=== PATIENT | female | born 1945 | race Caucasian/White ===

== ENCOUNTER 2022-04-02 11:04 | Inpatient (IN) | payer MEDICARE, MEDICAID, SELFPAY ==
[2022-04-02] VITALS (13 sets, daily range): BP systolic 110–132; BP diastolic 43–74; PULSE 69–84; RESP 12–24; TEMP 36.4–36.8; O2SAT 85–99; BMI 53.8
--- NOTE | ~2022-04-02 | XR_ITS ---
Portable chest x-ray Comparison: 04/02/2022 Clinical History: Dyspnea Findings: Moderate pulmonary edema pattern is present. No pleural effusions. Cardiomediastinal silh ouette is stable. Bones and soft tissues are unremarkable. Impression: Stable moderate pulmonary edema pattern. Correlate clinically for pneumonia. Reviewed, dictated and finalized at [facility]. UER MIXER Impression: Stable moderate pulmonary edema pattern. Correlate clinically for pneumonia.
--- NOTE | ~2022-04-02 | CT_ITS ---
CT scan of the Neck Technique: 2.5 mm axial scans were obtained through the neck without IV contrast demonstration. Coron al and sagittal reconstructions of the neck were obtained. Dose reduction technique was used on this scan by utilizing automated exposure control and iterative reconstruction technique. The dose-length product (DLP) was 1208.80 mGy-cm. Clinical History: Right neck pain, history of lymphoma Findings: There is no evidence of any significant cervical lymphadenopathy. Several small, nonenlarged jugulo- digastric and posterior cervical lymph nodes are noted bilaterally. Parapharyngeal spaces appear norm al bilaterally. The parotid and submandibular glands appear normal. The pharyngeal mucosal spaces appear normal. No soft tissue masses are seen in the neck. The thyroid gland appears normal. Images of the lung apices reveal patchy ground glass opacity and in terstitial thickening. Impression: No significant abnormality seen in the neck itself. Groundglass opacity and interstitial thickening in the visualized lungs suggest pulmonary edema. Reviewed, dictated and finalized at [facility]. AL ASSISTED THERAPIST Impression: No significant abnormality seen in the neck itself. Groundglass opacity and interstitial thickening in the visualized lungs suggest pulmonary edema.
--- NOTE | ~2022-04-02 | XR_ITS ---
Clinical Indication: Neck pain AP and lateral views of the chest: Comparison: 03/28/2016 Findings: Extensive bilateral pulmonary airspace disease and interstitial tearing present. No pleural effusion.. Cardiomediastinal silhouette is within normal limits. Bones and soft tissues are unremar kable. Impression: Extensive alveolar and interstitial pulmonary disease. Correlate for moderate pulmonary edema, infect ion, and possible underlying chronic interstitial disease. Reviewed, dictated and finalized at location . MACHINE OPERATOR Impression: Extensive alveolar and interstitial pulmonary disease. Correlate for moderate p ulmonary edema, infection, and possible underlying chronic interstitial disease .
--- NOTE | 2022-04-02 12:42 | ED.GENADULT ---
HPI - General Adult General Chief complaint: Unspecified Stated complaint: neck pain x 3 days, sore throat Time Seen by Provider: 04/02/22 12:02 History of Present Illness HPI narrative: 76-year-old female history of ESRD Friday, history of lymphoma status postresection, diabetes, presented with right neck pain. Per patient, for the last 4 days she has been having intermittent right neck pain, nonradiating, which has caused her significant pain. She was in dialysis today was only able to complete 3 hours when she was unable to continue because of the right neck pain. She denied fevers, chills, trauma to the area, chest pain, shortness of breath, abdominal pain, diarrhea. Past medical history: ESRD TTS, remote lymphoma status postresection and chemo Past surgical history: Left AV fistula Medications: Aspirin Allergies: No known drug allergies Related Data Home Medications Medication Instructions Recorded Confirmed allopurinol 100 mg tablet 100 mg PO DAILY 10/10/21 10/10/21 aspirin 81 mg tablet,delayed 81 mg PO DAILY 10/10/21 10/10/21 release (Adult Aspirin Regimen) atorvastatin 40 mg tablet 40 mg PO DAILY 10/10/21 10/10/21 gabapentin 100 mg capsule 100 mg PO BID 10/10/21 10/10/21 midodrine 10 mg tablet 10 mg PO TID 10/10/21 10/10/21 ropinirole 3 mg tablet 3 mg PO TID 10/10/21 10/10/21 vitamin B comp no.3-folic acid 1 1 tablet PO DAILY 10/10/21 10/10/21 mg-vit C 60 mg-biotin 300 mcg tablet ([facility]) Allergies Allergy/AdvReac Type Severity Reaction Status Date / Time No Known Allergies Allergy Unverified 10/10/21 09:04 Review of Systems Review of Systems: See HPI PMFSH Family History Family History Father Diabetes mellitus Hypertension Mother Diabetes mellitus Hypertension Heart disease Sibling Diabetes mellitus Hypertension Social History Social History Smoking status: Never smoker Alcohol intake: never Substance use: never Comments See HPI Exam Narrative: APPEARANCE: Alert, calm and cooperative, phonating, in apparent pain, elevated BMI HEAD: atraumatic EYES: Pupils equal round an reactive to light, extra ocular movements intact, no conjunctival injection NOSE: Normal no drainage MOUTH: no erythema, no oropharyngeal swelling, uvula midline NECK: Supple, without meningismus, right neck tenderness to palpation, no erythema, no fluctuance, no crepitus, no midline tenderness, left neck without tenderness, no stridor RESPIRATORY: Lungs clear to auscultation bilaterally, no wheezes/rales/rhonchi, breathing comfortably CARDIOVASCULAR: Regular rate and rhythm, no visible jugular venous distension ABDOMINAL: Soft, nontender, nondistended, no guarding, no rebound/peritoneal signs, no costovertebral tenderness to palpation BACK: no midline tenderness to palpation, no step offs EXTREMITIES: Left AV fistula with thrill, no evidence of surrounding erythema, no fluctuance, remaining extremities atraumatic, No edema, palpable peripheral pulses, warm, well perfused, no tenderness to bilateral calves. NEURO: Alert, moving all extremities symmetrically SKIN:: Warm, dry. Normal color PSYCHIATRIC: Normal affect/mood Course Reevaluation(s) Reevaluation #1: Patient reassessed, pain to the right neck significantly improved, however still there. Patient with intermittent hypoxia to 92 use 4 L. Chest x-ray notable for evidence of pulmonary congestion. CT neck, chest, without evidence of infection to the neck. Evidence of pulmonary congestion noted. Patient was unable to finish her dialysis, admission for dialysis and improvement of fluid overload discussed with patient, patient amenable for medical admission. Date: 04/02/22 Time: 16:46 Consultations Consultation #1: Case discussed with hospitalist, including the presenting complaint, physical exam, imaging, labs, EKG. Oseas
[2022-04-02 13:07] LABS: Basophils Percent Auto 0.5 % (0.2-1.2); Eosinophils Absolute Auto 0.4 K/mm3 (0-0.3); Eosinophils Percent Auto 6.1 % (0-4.4); Hematocrit 30.4 % (37.0-47.0); Hemoglobin 9.3 g/dL (12.0-15.0); Immature Granulocyte Absolute 0.03 K/mm3 (0.00-0.031); Immature Granulocyte Percent A 0.5 % (0-0.5); Immature Platelet Fraction Pct 5.4 % (0.9-11.2); Lymphocytes Absolute Auto 0.83 K/mm3 (0.9-3.2); Lymphocytes Percent Auto 13.4 % (18.3-44.2); Mean Corpuscular HGB Conc 30.6 g/dl (32-36); Mean Corpuscular Hemoglobin 36.6 pg (26-34); Mean Corpuscular Volume 119.7 fl (80-100); Mean Platelet Volume 11.4 fl (7.4-10.4); Monocytes Absolute Auto 0.4 K/mm3 (0.1-0.6); Monocytes Percent Auto 5.7 % (2.6-8.5); Neutrophils Absolute Auto 4.6 K/mm3 (1.3-6.7); Neutrophils Percent Auto 73.8 % (45.5-73.1); Nucleated Red Blood Cells Perc 0.3 % (0.0-0.2); Platelet Count Result 164 k/mm3 (150-375); Red Blood Count 2.54 M/mm3 (4.2-5.4); Red Cell Distribution Width 14.8 % (11.5-14.5); White Blood Count 6.2 K/mm3 (4.5-10.0)
[2022-04-02] MEDS: HYDROmorphone HCL INJ (*CRX) 1 MG/ML SYR 0.5 MG IV PUSH (13:31)
[2022-04-02 13:33] LABS: Platelet Estimate Adequate (Adequate)
[2022-04-02 13:34] LABS: Anisocytosis 2+ (NORMAL); Hypochromasia 2+ (NORMAL); Poikilocytosis 1+ (NORMAL); Schistocytes Rare (NORMAL)
--- NOTE | 2022-04-02 14:19 | ECG_ITS ---
Measurements Intervals [place] Rate: 67 P: 57 LA: 177 QRS: 43 QRSD: 113 T: 44 QT: 439 QTc: 464 Interpretive Statements SINUS RHYTHM BASELINE ARTIFACT LOW-VOLTAGE QRS IN PRECORDIAL LEADS MODERATE INTRAVENTRICULAR CONDUCTION DELAY BORDERLINE ECG NO PREVIOUS ECG AVAILABLE FOR COMPARISON Electronically Signed On 04-02-2022 18:02:07 PHYSIOTHERAPIST'S ASSISTANT by Bigg Lopez M.D.
[2022-04-02 14:21] LABS: Alanine Aminotransferase 9 U/L (6-35); Albumin Level 4.3 g/dL (3.5-5.1); Alkaline Phosphatase 81 U/L (38-126); Anion Gap 10 mmol/L (8-16); Aspartate Amino Transferase 28 U/L (14-36); Bilirubin,Total 0.5 mg/dL (0.2-1.3); Blood Urea Nitrogen 50 mg/dL (7-17); Carbon Dioxide 32 mmol/L (22-30); Chloride 96 mmol/L (98-107); Estimated CRCL calculation 7 ml/min; Estimated Glomerular Filt Rate 5; Glucose 133 mg/dL (65-110); Potassium 4.2 mmol/L (3.4-5.0); Sodium 138 mmol/L (137-145)
[2022-04-02 15:14] LABS: NT Pro B Type Natriuretic Pept 22900 pg/mL (5-100); Troponin I 0.041 ng/mL (0.000-0.034)
[2022-04-02 18:42] LABS: Influenza A QL RT-PCR Negative (Negative); Influenza B QL RT-PCR Negative (Negative); SARS-CoV-2 RNA PCR Negative
--- NOTE | 2022-04-02 20:23 | ADMGEN ---
This patient, Norma Ferguson, was admitted to 3 [facility] Surg Room 304-01. Patient/family oriented to hospital policies and general routines including ID bracelet, bed and alarms, visiting hours, pain management, procedures, bathroom and other care routines, personal items, smoking policy, room service/diet, and visiting hours. Information on how to activate the Rapid Response Team has been discussed. Patient/Family are encouraged to report perceived risks to care and to ask questions if they do not understand what they are told or what they should do.
--- NOTE | 2022-04-02 20:40 | PM.IMHP ---
H&P: HPI History of Present Illness Date/Time: 04/02/22 20:40 Chief Complaint: NECK PAIN Narrative: This is a 76-year-old female with past medical history significant for end-stage renal disease on hemodialysis Saturdays, remote history of lymphoma, anemia of chronic disease. Patient was undergoing her dialysis treatment when she developed right-sided neck pain patient has also has sore throat and a runny nose for the last 3 days or so denies any pain with swallowing or difficulty swallowing, patient denies any night sweats, chills, fevers, no nausea, no vomiting, has had some shortness of breath currently on oxygen by nasal cannula. Preliminary workup was significant for a brain natriuretic peptide of 22,000, a hemoglobin of 9.5 MCV 119 creatinine of 8.4 BUN is 50, patient tested negative for influenza A, influenza B and COVID-19. A chest x-ray was reported as: Findings: Extensive bilateral pulmonary airspace disease and interstitial tearing present. No pleural effusion..? Cardiomediastinal silhouette is within normal limits. Bones and soft tissues are unremarkable. ? Impression: ? Extensive alveolar and interstitial pulmonary disease. Correlate for moderate pulmonary edema, infection, and possible underlying chronic interstitial disease. A CT of the neck was reported as: Findings: There is no evidence of any significant cervical lymphadenopathy. Several small, nonenlarged jugulo- digastric and posterior cervical lymph nodes are noted bilaterally. Parapharyngeal spaces appear normal bilaterally. The parotid and submandibular glands appear normal. The pharyngeal mucosal spaces appear normal. No soft tissue masses are seen in the neck. The thyroid gland appears normal. Images of the lung apices reveal patchy ground glass opacity and interstitial thickening. Impression: No significant abnormality seen in the neck itself. Groundglass opacity and interstitial thickening in the visualized lungs suggest pulmonary edema. Review of Systems Review of Systems: Right-sided neck pain Constitutional: Constitutional: Reports body ache(s), Denies chills, Reports fatigue, Denies fever(s), Reports lethargy, Reports malaise, Denies night sweats and Reports weakness Eyes: Eyes: Denies change in vision ENT: Denies dysphagia, Reports nasal congestion, Reports nasal discharge and Denies odynophagia Cardiovascular: Cardiovascular: Denies chest pain, Denies syncope, Denies lightheadedness and Denies palpitations Respiratory: Respiratory: Denies chest congestion, Reports cough and Reports dyspnea Gastrointestinal: Gastrointestinal: Denies abdominal pain, Denies dyspepsia, Denies heartburn, Denies diarrhea, Denies nausea and Denies vomiting Genitourinary: Genitourinary: Reports no additional female genitourinary complaints, Reports as per HPI and Denies dysuria Musculoskeletal: Musculoskeletal: Denies back pain, Denies joint swelling and Reports neck pain Integumentary/Breasts: Skin/Breast: Denies rash Neurologic: Denies dizziness, Denies focal weakness, Denies loss of vision and Denies Sensory deficit (Neuro) Psychiatric: Psychiatric: Reports no additional psychiatric complaints and Reports as per HPI Endocrine: Endocrine: Denies cold intolerance, Denies fatigue, Denies flushing, Denies heat intolerance, Denies polyphagia, Denies polydipsia and Denies palpitations Hematologic/Lymphatic: Hematologic/Lymphatic: Reports no additional hematologic/lymphatic complaints and Reports as per HPI Allergic/Immunologic: Allergic/Immunologic: Reports no additional allergic/immunologic complaints and Reports as per HPI PMFSH Family History Family History Father Diabetes mellitus Hypertension Mother Diabetes mellitus Hypertension Heart disease Sibling Diabetes mellitus Hypertension Social History Social History Smoking
[2022-04-02 21:22] LABS: Glucose Point of Care 137 mg/dl (65-105)
[2022-04-02] MEDS: methocarbamoL 500 MG TABLET PO (23:39)
[2022-04-02] MEDS: ACETAMINOPHEN 500 MG TABLET 1000 MG PO (23:40)
[2022-04-03] VITALS (17 sets, daily range): BP systolic 97–139; BP diastolic 24–90; PULSE 59–71; RESP 16–20; TEMP 36.3–36.5; O2SAT 90–99
--- NOTE | 2022-04-03 | ECHO_ITS ---
Patient Info Name: Norma Ferguson Age: 76 years : 1945 Gender: Female Ht: 60 in Wt: 275 lbs BSA: 2.39 m2 HR: 66 bpm BP: 97 / 51 mmHg Heart Rhythm: Sinus Rhythm Technical Quality: Fair Exam Date: 04/03/2022 2:41 PM Exam Location: [facility] Pulmonary Patient Status: Inpatient Admit Date: 04/03/2022 Staff Ordering Physician: Kemi Esparza MD Tunnel Form Placing Supervisor: Kristan Guzmán RDCS Attending Provider: July Glass DO Referring Physician: Vilma REYNOLDS; Exam Type: CA echo dop color flow w con Study Info Indications - elevated bnp Complete two-dimensional, color flow and Doppler transthoracic echocardiogram is performed with contrast to opacify the left ventricle and to improve the deliniation of the left ventricle endocardial borders. Contrast/Agitated Saline Contrast/Ag. Saline: Definity Amount: 3.00 ml Administered By: Kristan Guzmán RDCS Existing IV Access: Yes IV Access Condition: patent with no signs of infiltration Summary 1. Left ventricular systolic function is normal, estimated at >70%. 2. There is moderately increased left ventricular wall thickness. 3. The left ventricular diastolic function is grade I diastolic dysfunction. 4. Right ventricular chamber dimension is enlarged. 5. Right ventricular systolic function is normal. 6. The mitral valve has thickened leaflets and calcified leaflets. 7. There is moderate mitral valve calcification. 8. There is trace mitral valve regurgitation. 9. There is moderate tricuspid valve regurgitation. 10. Dilated inferior vena cava with <50% collapse upon inspiration consistent with elevated right atrial pressure, 15 mmHg. 11. Pulmonary hypertension is present with an estimated PASP of 76mmHg. Left Ventricle Left ventricular chamber dimension is normal. Left ventricular systolic function is normal, estimated at >70%. There is moderately increased left ventricular wall thickness. The left ventricular diastolic function is grade I diastolic dysfunction. Right Ventricle Right ventricular chamber dimension is enlarged. Right ventricular systolic function is normal. Left Atria Left atrial chamber dimension is normal. Right Atria Right atrial chamber dimension is normal. Aortic Valve The aortic valve is probable trileaflet. There is no aortic valve stenosis. There is no aortic valve regurgitation. There is mild aortic valve calcification. Pulmonic Valve The pulmonic valve is not well visualized. Mitral Valve The mitral valve has thickened leaflets and calcified leaflets. There is no mitral valve stenosis. There is trace mitral valve regurgitation. There is moderate mitral valve calcification. Tricuspid Valve The tricuspid valve leaflets are normal. There is moderate tricuspid valve regurgitation. Pericardium/Pleural There is trivial pericardial effusion. Inferior Vena Cava Dilated inferior vena cava with <50% collapse upon inspiration consistent with elevated right atrial pressure, 15 mmHg. Aorta The aortic root size at the sinus of Valsalva is normal. Left Ventricular Outflow Tract Name Value Normal LVOT 2D LVOT Diameter 2.01 cm
[2022-04-03] MEDS: ACETAMINOPHEN 500 MG TABLET 1000 MG PO ×2 (06:19→11:51)
[2022-04-03 07:46] LABS: Hepatitis B Surface Antigen Negative (Negative)
[2022-04-03] MEDS: MIDODRINE HCL 10 MG TABLET PO (08:09)
[2022-04-03 09:27] LABS: Hepatitis B Surface Anti Res Negative
--- NOTE | 2022-04-03 10:44 | PM.CNNEP ---
Assessment and Plan Assessment and plan (1) End stage renal disease: Code(s): N18.6 - End stage renal disease Status: Chronic Assessment and Plan: plan HD tomorrow and continue T/T/S schedule follow electrolytes, volume status, and clearance given hypoxia, plan DUF (dry ultrafiltration today) (2) Acute respiratory failure with hypoxia: Code(s): J96.01 - Acute respiratory failure with hypoxia Status: Acute Assessment and Plan: due to pulmonary edema/volume overload + pneumonia reasonable oxygenation with supplemental oxygen DUF treatment today for fluid removal continue current therapy (3) Acute congestive heart failure: Qualifiers: Heart failure type: diastolic Qualified Code(s): I50.31 - Acute diastolic (congestive) heart failure Code(s): I50.9 - Heart failure, unspecified Status: Acute Assessment and Plan: as evidenced by CXR related more to limited fluid removal with dialysis? follow-up on Echo fluid removal/ultrafiltration with HD/DUF as tolerated (4) Pneumonia: Code(s): J18.9 - Pneumonia, unspecified organism Status: Acute Assessment and Plan: as suggestd by admission imaging follow culture data on antibiotics (5) Anemia: Code(s): D64.9 - Anemia, unspecified Status: Chronic Assessment and Plan: related to ESRD Epogen with HD follow trend of H/H (6) Neck pain on right side: Code(s): M54.2 - Cervicalgia Status: Acute Assessment and Plan: CT imaging reviewed pain control - muscle relaxers + tylenol for now continue supportive therapy Will continue to follow. History of Present Illness Reason for Consult Consult date: 04/03/22 Reason for consult: end stage renal disease Chief Complaint Chief complaint: fluid overload History of Present Illness Narrative: The patient is a 76-year-old female with a past medical history as outlined below who presented to and Hospital Emergency room yesterday afternoon due to severe right-sided neck pain. The patient was receiving her regularly scheduled dialysis treatment yesterday when she developed the aforementioned right-sided neck pain. Apparently the pain was so severe that she could not tolerate any further dialysis and the treatment had to be aborted. She apparently received about 3 hr of her treatment. Other associated symptoms with her right-sided neck pain included a sore throat and a runny nose but no other symptoms with regard to fevers, chills, night sweats, nausea, or vomiting. Given the severity of her right sided neck pain, she presented to the emergency room for further assessment. Workup and evaluation in the emergency room demonstrated the patient be hemodynamically stable although she was noted to be somewhat hypoxic with improvement in her oxygen saturations with application of supplemental oxygen by nasal cannula routine blood test demonstrated labs consistent with her known history of end-stage renal disease in association with an elevated BNP, mild anemia, and a chest x-ray that demonstrated evidence of pulmonary vascular congestion. Her influenza a/ B as well as COVID-19 testing was negative as well. Given the severity of her right neck pain, a CT of her neck was done which demonstrated no significant abnormalities although did mention evidence of pulmonary edema by images of the lung that were noted. given these findings and her somewhat complex medical history, she was admitted to the hospital for further evaluation and therapy. Renal consultation was requested due to her history of end-stage renal disease. The patient normally dialyzes on a Friday, , Friday schedule at [facility] under the care of Dr. Nikunj Alcazar. Based my discussion with her outpatient dialysis unit, she recently moved to this area from [place]. on her last dialysis treatment, before it was aborted due to her ri
[2022-04-03] MEDS: ASPIRIN 81 MG ENTERIC TABLET PO (11:52)
[2022-04-03] MEDS: GABAPENTIN 100 MG CAPSULE 200 MG PO ×2 (11:52→17:15)
[2022-04-03] MEDS: VITAMIN B CMPLX/VIT C/FOLIC AC 1 CAPSULE 1 CAP PO (11:52)
[2022-04-03] MEDS: allopurinoL 100 MG TABLET PO (11:52)
[2022-04-03] MEDS: PERFLUTREN LIPID MICROSPHERES 1.5 ML VIAL DILUTED TO 10 ML TOTAL VOLUME IV PUSH (15:19)
--- NOTE | 2022-04-03 15:19 | IVDEFINITY ---
Prior to administration of IV Definity the patient was educated on the risks and benefits of the imaging enhancing agent including potential adverse side effects. The patient verbalized understanding. Allergies were verified. No exclusion criteria were identified and at least one of the following inclusion criteria were met: 1) physician request, 2) patient technically difficult to image (per the [place] [employer] guidelines of two or more segments not discernable within the apical view), or 3) questionable left ventricular function. ?
--- NOTE | 2022-04-03 16:21 | PM.IMPN ---
Progress Note: A&P Assessment and Plan (1) Infiltrate of lower lobe of right lung present on imaging study: Code(s): R91.8 - Other nonspecific abnormal finding of lung field Status: Acute Assessment and Plan: Possible pneumonia. Chest X-ray with bilateral opacities. WBC within normal limits. continue empiric cefepime IV, azithromycin IV and vanc with HD blood cultures pending Continue to monitor (2) End-stage renal disease on hemodialysis: Code(s): N18.6 - End stage renal disease; Z99.2 - Dependence on renal dialysis Status: Acute Assessment and Plan: HD on Tuesdays and Saturdays Nephrology consult and appreciate recommendations 04/03/22 HD today - 2L (3) Anemia of chronic disease: Code(s): D63.8 - Anemia in other chronic diseases classified elsewhere Status: Acute Assessment and Plan: Presumed secondary to ESRD. Hgb 9.3 No acute s/s bleeding Monitor. Epogen deferred to nephrology service (4) Morbid obesity with BMI of 45.0-49.9, adult: Code(s): E66.01 - Morbid (severe) obesity due to excess calories; Z68.42 - Body mass index [BMI] 45.0-49.9, adult Status: Chronic Assessment and Plan: Lifestyle and diet modifications BMI 53 (5) Acute respiratory failure with hypoxia: Code(s): J96.01 - Acute respiratory failure with hypoxia Status: Acute Assessment and Plan: Currently on supplemental oxygen by nasal cannula. Secondary to CHF exacerbation and pneumonia Wean O2 as needed (6) Acute congestive heart failure: Qualifiers: Heart failure type: diastolic Qualified Code(s): I50.31 - Acute diastolic (congestive) heart failure Code(s): I50.9 - Heart failure, unspecified Status: Acute Assessment and Plan: BNP 21656 on admission. Chest x-ray with pulmonary opacities, which may suggest pulmonary edema. echocardiogram shows grade 1 diastolic dysfunction and pulmonary hypertension with RVSP 76 mmhg Continue dialysis, daily weights and I/O monitoring (7) Neck pain on right side: Code(s): M54.2 - Cervicalgia Status: Acute Assessment and Plan: Suspect torticollis. CT neck negative for acute abnormality Continue methocarbamol and Tylenol Add lidoderm patch 5% Time Spent With Patient Time with patient: 25 - 35 minutes Subjective Date/time seen: 04/03/22 16:21 She c/o right neck pain. No paresthesia or unilateral extremity weakness. She still has intermittent shortness of breath, sore throat and nasal discharge. No headaches or sputum. Review of Systems Review of Systems: All systems reviewed & are unremarkable except as noted in HPI and below Exam Narrative: GENERAL: no acute distress, Tired appearing, morbidly obese female. HEENT: Normocephalic. Atraumatic. Pupils equal and round. moist mucous membranes NECK: no lymphadenopathy or JVD. Right sternocleidomastoid tenderness to palpation and increased muscle tension noted. RESPIRATORY: Respirations unlabored. lung sounds clear to auscultation bilateral upper lobes, diminished with fine crackles bibasilar lobes. No wheezing CARDIO: Normal S1 and S2 regular rate and rhythm. systolic murmur 1/6 LSB, no gallops or rubs. GI: soft, obese, nontender, bowel sounds present SKIN: no rashes, fair, warm & dry. LUE AV fistula EXTREMITIES: +1 edema BLE. Grossly normal ROM with generalized weakness. Dorsalis pedis pulses +2 bilaterally. NEURO: AOx3, neutral mood and affect. Objective Data Vital Signs Vital Signs: Vital Signs - 24 hr 04/02/22 17:04 04/02/22 18:47 04/02/22 21:07 Temperature 97.5 F L Pulse Rate 73 70 75 Respiratory Rate 14 12 22 H Blood Pressure 110/51 L 113/49 L Pulse Oximetry 98 99 93 Oxygen Delivery Oxygen Flow Rate 04/02/22 23:50 04/02/22 23:50 04/03/22 06:10 Temperature 97.5 F L Pulse Rate 69 66 Respiratory Rate 18 20 Blood Pressure 97/51 L Pulse Oximetry 91 92 9
[2022-04-03] MEDS: TOLNAFTATE 1% POWDER 45 GM BTL 1 APPLIC TOPICAL (21:03)
[2022-04-03] MEDS: ATORVASTATIN 40 MG TABLET PO (21:03)
[2022-04-03] MEDS: HEPARIN SODIUM 5,000 UNITS/ML VIAL 5000 UNITS SUB-Q (21:03)
[2022-04-04] VITALS (22 sets, daily range): BP systolic 94–156; BP diastolic 34–99; PULSE 62–90; RESP 16–23; TEMP 36–36.7; O2SAT 91–98
[2022-04-04] MEDS: CEFEPIME 0.5 GM in DEXTROSE 5% IN WATER 50 ML IVPB (00:28)
[2022-04-04] MEDS: ACETAMINOPHEN 500 MG TABLET 1000 MG PO (05:45)
[2022-04-04 06:58] LABS: Basophils Percent Auto 0.6 % (0.2-1.2); Eosinophils Absolute Auto 0.4 K/mm3 (0-0.3); Eosinophils Percent Auto 6.3 % (0-4.4); Hemoglobin 8.8 g/dL (12.0-15.0); Immature Granulocyte Absolute 0.02 K/mm3 (0.00-0.031); Immature Granulocyte Percent A 0.3 % (0-0.5); Lymphocytes Absolute Auto 0.99 K/mm3 (0.9-3.2); Lymphocytes Percent Auto 14.8 % (18.3-44.2); Mean Corpuscular HGB Conc 30.3 g/dl (32-36); Mean Corpuscular Hemoglobin 36.4 pg (26-34); Mean Corpuscular Volume 119.8 fl (80-100); Mean Platelet Volume 11.3 fl (7.4-10.4); Monocytes Absolute Auto 0.6 K/mm3 (0.1-0.6); Monocytes Percent Auto 8.2 % (2.6-8.5); Neutrophils Absolute Auto 4.7 K/mm3 (1.3-6.7); Neutrophils Percent Auto 69.8 % (45.5-73.1); Platelet Count Result 155 k/mm3 (150-375); Red Blood Count 2.42 M/mm3 (4.2-5.4); Red Cell Distribution Width 14.5 % (11.5-14.5); White Blood Count 6.7 K/mm3 (4.5-10.0)
[2022-04-04] MEDS: VITAMIN B CMPLX/VIT C/FOLIC AC 1 CAPSULE 1 CAP PO (09:53)
[2022-04-04] MEDS: MIDODRINE HCL 10 MG TABLET PO (09:53)
[2022-04-04] MEDS: ASPIRIN 81 MG ENTERIC TABLET PO (09:54)
[2022-04-04] MEDS: GABAPENTIN 100 MG CAPSULE 200 MG PO ×2 (09:54→18:06)
[2022-04-04] MEDS: HEPARIN SODIUM 5,000 UNITS/ML VIAL 5000 UNITS SUB-Q ×2 (09:54→20:59)
[2022-04-04] MEDS: LIDOCAINE 5% PATCH 1 PATCH TRANSDERM (09:55)
[2022-04-04] MEDS: TOLNAFTATE 1% POWDER 45 GM BTL 1 APPLIC TOPICAL ×2 (09:55→21:01)
[2022-04-04 10:28] LABS: Anion Gap 16 mmol/L (8-16); Blood Urea Nitrogen 72 mg/dL (7-17); Calcium 6.5 mg/dL (8.4-10.2); Carbon Dioxide 26 mmol/L (22-30); Chloride 97 mmol/L (98-107); Estimated CRCL calculation 5 ml/min; Estimated Glomerular Filt Rate 3; Glucose 140 mg/dL (65-110); Magnesium 2.3 mg/dL (1.6-2.3); Phosphorus 9.5 mg/dL (2.5-4.5); Potassium 5.7 mmol/L (3.4-5.0); Sodium 139 mmol/L (137-145)
[2022-04-04] MEDS: allopurinoL 100 MG TABLET PO (10:29)
--- NOTE | 2022-04-04 10:40 | PC.NURSE ---
to dialysis via bed
--- NOTE | 2022-04-04 11:40 | P.PNNP_ITS ---
Progress Note: A&P Assessment and Plan (1) End stage renal disease: Code(s): N18.6 - End stage renal disease Status: Chronic Assessment and Plan: * HD today and continue T/T/S schedule * follow electrolytes, volume status, and clearance (2) Acute respiratory failure with hypoxia: Code(s): J96.01 - Acute respiratory failure with hypoxia Status: Acute Assessment and Plan: * due to pulmonary edema/volume overload + pneumonia * reasonable oxygenation with supplemental oxygen * continue to push fluid removal as tolerated by hemodynamics * on antibiotics * continue current therapy (3) Acute congestive heart failure: Qualifiers: Heart failure type: diastolic Qualified Code(s): I50.31 - Acute diastolic (congestive) heart failure Code(s): I50.9 - Heart failure, unspecified Status: Acute Assessment and Plan: * as evidenced by CXR * suspect more related to limited fluid removal due to her relative hypotension * Echo results noted * continue fluid removal/ultrafiltration with HD/DUF as tolerated (4) Pneumonia: Code(s): J18.9 - Pneumonia, unspecified organism Status: Acute Assessment and Plan: * as suggestd by admission imaging * follow culture data * on antibiotics (5) Anemia: Code(s): D64.9 - Anemia, unspecified Status: Chronic Assessment and Plan: * related to ESRD * Epogen with HD * follow trend of H/H (6) Neck pain on right side: Code(s): M54.2 - Cervicalgia Status: Acute Assessment and Plan: * CT imaging reviewed * some improvement with current therapy Will continue to follow. Subjective Date/time seen: 04/04/22 11:40 Tolerated DUF session yesterday and tolerating hemodialysis treatment at the time of my visit (seen on HD at ~ 11:30AM); unfortunately, her relative hypotension is limiting fluid removal; otherwise, she is in no apparent distress, neck pain seems a bit better. Exam Narrative: General: elderly WD/WN female in NAD Heart: normal S1 and S2; no rub Lungs: decreased at the bases with a few crackles Abdomen: soft, nontender, nondistended, positive bowel sounds Extremities: no cyanosis or clubbing; trace edema Skin: warm and dry Objective Data Vital Signs Vital Signs: Vital Signs Temp Pulse Resp BP Pulse Ox O2 Del Method O2 Flow Rate 04/04/22 08:40 66 16 98 Nasal Cannula 4 04/04/22 06:31 97.8 F 66 16 95/52 L 98 04/03/22 20:00 93 Nasal Cannula 4 04/03/22 23:49 93 Nasal Cannula 4 04/03/22 23:04 97.7 F 67 16 108/50 L 90 04/03/22 14:00 97.6 F 60 16 111/49 L 97 Intake/Output Intake/Output: Intake & Output 04/01/22 04/02/22 04/03/22 04/04/22 23:59 23:59 23:59 23:59 Intake Total 0 1250 Output Total 1999 Balance 90 1250 Meds/Results Medications: Active Medications Generic Name Dose Route Start Last Admin Trade Name Freq PRN Reason Stop Dose Admin Acetaminophen 1,000 mg 04/03/22 01:14 04/04/22 05:45 Acetaminophen 500 Mg Tablet PO 1,000 mg Q6H PRN Administration Mild Pain (1-3) or Fever Allopurinol 100 mg 1
--- NOTE | 2022-04-04 11:40 | PM.PNNEP ---
Progress Note: A&P Assessment and Plan (1) End stage renal disease: Code(s): N18.6 - End stage renal disease Status: Chronic Assessment and Plan: HD today and continue T/T/S schedule follow electrolytes, volume status, and clearance (2) Acute respiratory failure with hypoxia: Code(s): J96.01 - Acute respiratory failure with hypoxia Status: Acute Assessment and Plan: due to pulmonary edema/volume overload + pneumonia reasonable oxygenation with supplemental oxygen continue to push fluid removal as tolerated by hemodynamics on antibiotics continue current therapy (3) Acute congestive heart failure: Qualifiers: Heart failure type: diastolic Qualified Code(s): I50.31 - Acute diastolic (congestive) heart failure Code(s): I50.9 - Heart failure, unspecified Status: Acute Assessment and Plan: as evidenced by CXR suspect more related to limited fluid removal due to her relative hypotension Echo results noted continue fluid removal/ultrafiltration with HD/DUF as tolerated (4) Pneumonia: Code(s): J18.9 - Pneumonia, unspecified organism Status: Acute Assessment and Plan: as suggestd by admission imaging follow culture data on antibiotics (5) Anemia: Code(s): D64.9 - Anemia, unspecified Status: Chronic Assessment and Plan: related to ESRD Epogen with HD follow trend of H/H (6) Neck pain on right side: Code(s): M54.2 - Cervicalgia Status: Acute Assessment and Plan: CT imaging reviewed some improvement with current therapy Will continue to follow. Subjective Date/time seen: 04/04/22 11:40 Tolerated DUF session yesterday and tolerating hemodialysis treatment at the time of my visit (seen on HD at ~ 11:30AM); unfortunately, her relative hypotension is limiting fluid removal; otherwise, she is in no apparent distress, neck pain seems a bit better. Exam Narrative: General: elderly WD/WN female in NAD Heart: normal S1 and S2; no rub Lungs: decreased at the bases with a few crackles Abdomen: soft, nontender, nondistended, positive bowel sounds Extremities: no cyanosis or clubbing; trace edema Skin: warm and dry Objective Data Vital Signs Vital Signs: Vital Signs Temp Pulse Resp BP Pulse Ox O2 Del Method O2 Flow Rate 04/04/22 08:40 66 16 98 Nasal Cannula 4 04/04/22 06:31 97.8 F 66 16 95/52 L 98 04/03/22 20:00 93 Nasal Cannula 4 04/03/22 23:49 93 Nasal Cannula 4 04/03/22 23:04 97.7 F 67 16 108/50 L 90 04/03/22 14:00 97.6 F 60 16 111/49 L 97 Intake/Output Intake/Output: Intake & Output 04/01/22 04/02/22 04/03/22 04/04/22 23:59 23:59 23:59 23:59 Intake Total 2090 1250 Output Total 1999 Balance 90 1250 Meds/Results Medications: Active Medications Generic Name Dose Route Start Last Admin Trade Name Rajq PRN Reason Stop Dose Admin Acetaminophen 1,000 mg 04/03/22 01:14 04/04/22 05:45 Acetaminophen 500 Mg Tablet PO 1,000 mg Q6H PRN Administration Mild Pain (1-3) or Fever Allopurinol 100 mg 04/03/22 08:00 04/04/22 10:29 Allopurinol 100 Mg Tablet PO 100 mg DAILY@0800 ERIC Administration Aspirin 81 mg 04/03/22 09:00 04/04/22 09:54 Aspirin 81 Mg Enteric Tablet PO 81 mg DAILY ERIC Administration Atorvastatin Calcium 40 mg 04/03/22 21:00 04/03/22 21:03 Atorvastatin 40 Mg Tablet PO 40 mg HS ERIC Administration Epoetin Guido-epbx 10,000 units 04/04/22 21:11 Epoetin Guido-Epbx 10,000 Units/Ml Vial IV PUSH 04/04/22 21:12 ONCE ONE Gabapentin 200 mg 04/03/22 09:00 04/04/22 09:54 Gabapentin 100 Mg Capsule PO 200 mg BID ERIC Administration Heparin Sodium (Porcine) 5,000 units 04/03/22 21:00 04/04/22 09:54 Heparin Sodium 5,000 Units/Ml Vial SUB-Q 5,000 units Q12HR ERIC Administration Cefepime HCl 0.5 gm/ Dextrose 5
--- NOTE | 2022-04-04 14:12 | PCPTNOTE ---
Attempted PT evaluation, pt at dialysis. Will follow.
--- NOTE | 2022-04-04 15:38 | PM.IMPN ---
Progress Note: A&P Assessment and Plan (1) Infiltrate of lower lobe of right lung present on imaging study: Code(s): R91.8 - Other nonspecific abnormal finding of lung field Status: Acute Assessment and Plan: Possible pneumonia. Chest X-ray with bilateral opacities. WBC within normal limits. continue empiric cefepime IV, azithromycin IV and vanc with HD Repeat CXR in am. Transition to oral antibiotics if continues to improved in am. blood cultures negative to date Continue to monitor (2) End-stage renal disease on hemodialysis: Code(s): N18.6 - End stage renal disease; Z99.2 - Dependence on renal dialysis Status: Acute Assessment and Plan: HD on Tuesdays and Saturdays Nephrology consult and appreciate recommendations 04/03/22 HD today - 2L 04/04/22 HD today in process (3) Anemia of chronic disease: Code(s): D63.8 - Anemia in other chronic diseases classified elsewhere Status: Acute Assessment and Plan: Presumed secondary to ESRD. Hgb 9.3 No acute s/s bleeding Monitor. Epogen deferred to nephrology service Stable. (4) Morbid obesity with BMI of 45.0-49.9, adult: Code(s): E66.01 - Morbid (severe) obesity due to excess calories; Z68.42 - Body mass index [BMI] 45.0-49.9, adult Status: Chronic Assessment and Plan: Lifestyle and diet modifications BMI 53 (5) Acute respiratory failure with hypoxia: Code(s): J96.01 - Acute respiratory failure with hypoxia Status: Acute Assessment and Plan: Currently on supplemental oxygen by nasal cannula. Secondary to CHF exacerbation and pneumonia Wean O2 as needed- currently on 4L NC with spo2 92% Echo shows pulmonary hypertension RSVP 76 (6) Acute congestive heart failure: Qualifiers: Heart failure type: diastolic Qualified Code(s): I50.31 - Acute diastolic (congestive) heart failure Code(s): I50.9 - Heart failure, unspecified Status: Acute Assessment and Plan: BNP 22,000 on admission. Chest x-ray with pulmonary opacities, which may suggest pulmonary edema. echocardiogram shows grade 1 diastolic dysfunction and pulmonary hypertension with RVSP 76 mmhg Continue dialysis, daily weights and I/O monitoring 04/04/22 repeat BNP in am. (7) Neck pain on right side: Code(s): M54.2 - Cervicalgia Status: Acute Assessment and Plan: Suspect torticollis. CT neck negative for acute abnormality Continue methocarbamol and Tylenol lidoderm patch 5% daily Improved Time Spent With Patient Time with patient: 15 - 25 minutes Subjective Date/time seen: 04/04/22 15:38 Interval history: Her neck is feeling a little bit better today. She thinks the pain patch helps. No chest pain or SOB. She is undergoing HD again today. Review of Systems Review of Systems: All systems reviewed & are unremarkable except as noted in HPI and below Exam Narrative: GENERAL: no acute distress, Tired appearing, morbidly obese female. HEENT: Normocephalic. Atraumatic. Pupils equal and round. moist mucous membranes NECK: no lymphadenopathy or JVD. Right sternocleidomastoid tenderness to palpation and increased muscle tension noted. RESPIRATORY: Respirations unlabored. lung sounds clear to auscultation bilateral upper lobes, diminished bibasilar lobes. No wheezing CARDIO: Normal S1 and S2 regular rate and rhythm. systolic murmur 1/6 LSB, no gallops or rubs. GI: soft, obese, nontender, bowel sounds present SKIN: no rashes, fair, warm & dry. LUE AV fistula patent with HD. EXTREMITIES: No edema. Grossly normal ROM with generalized weakness. Dorsalis pedis pulses +2 bilaterally. NEURO: AOx3, neutral mood and affect. Objective Data Vital Signs Vital Signs: Vital Signs - 24 hr 04/03/22 23:04 04/03/22 23:49 04/03/22 20:00 Temperature 97.7 F Pulse Rate 67 Respiratory Rate 16 Blood Pressure 108/50 L Pulse Oximetry 90 93 93 Oxyge
--- NOTE | 2022-04-04 16:10 | PC.NURSE ---
pt returned from dialysis via bed
[2022-04-04] MEDS: ATORVASTATIN 40 MG TABLET PO (20:59)
[2022-04-05] MEDS: CEFEPIME 0.5 GM in DEXTROSE 5% IN WATER 50 ML IVPB (03:04)
[2022-04-05 06:00] VITALS: BP 126/58; PULSE 79; RESP 21; TEMP 36.8; O2SAT 93
[2022-04-05 06:55] LABS: Basophils Percent Auto 0.6 % (0.2-1.2); Eosinophils Absolute Auto 0.4 K/mm3 (0-0.3); Eosinophils Percent Auto 7.5 % (0-4.4); Hematocrit 28.3 % (37.0-47.0); Hemoglobin 8.4 g/dL (12.0-15.0); Immature Granulocyte Absolute 0.02 K/mm3 (0.00-0.031); Immature Granulocyte Percent A 0.4 % (0-0.5); Immature Platelet Fraction Pct 7.4 % (0.9-11.2); Lymphocytes Absolute Auto 0.85 K/mm3 (0.9-3.2); Lymphocytes Percent Auto 17.8 % (18.3-44.2); Mean Corpuscular HGB Conc 29.7 g/dl (32-36); Mean Corpuscular Hemoglobin 36.5 pg (26-34); Mean Platelet Volume 11.2 fl (7.4-10.4); Monocytes Absolute Auto 0.5 K/mm3 (0.1-0.6); Monocytes Percent Auto 10.9 % (2.6-8.5); Neutrophils Percent Auto 62.8 % (45.5-73.1); Nucleated Red Blood Cells Perc 0.4 % (0.0-0.2); Platelet Count Result 149 k/mm3 (150-375); Red Cell Distribution Width 14.5 % (11.5-14.5); White Blood Count 4.8 K/mm3 (4.5-10.0)
[2022-04-05 07:11] LABS: Anion Gap 9 mmol/L (8-16); Blood Urea Nitrogen 29 mg/dL (7-17); Calcium 7.1 mg/dL (8.4-10.2); Carbon Dioxide 30 mmol/L (22-30); Chloride 99 mmol/L (98-107); Estimated CRCL calculation 9 ml/min; Estimated Glomerular Filt Rate 7; Glucose 129 mg/dL (65-110); Potassium 4.6 mmol/L (3.4-5.0); Sodium 138 mmol/L (137-145)
[2022-04-05 08:17] VITALS: O2SAT 96
[2022-04-05 09:50] VITALS: O2SAT 96
[2022-04-05] MEDS: LIDOCAINE 5% PATCH 1 PATCH TRANSDERM (09:53)
[2022-04-05] MEDS: ASPIRIN 81 MG ENTERIC TABLET PO (09:53)
[2022-04-05] MEDS: VITAMIN B CMPLX/VIT C/FOLIC AC 1 CAPSULE 1 CAP PO (09:53)
[2022-04-05] MEDS: HEPARIN SODIUM 5,000 UNITS/ML VIAL 5000 UNITS SUB-Q ×2 (09:53→20:19)
[2022-04-05] MEDS: GABAPENTIN 100 MG CAPSULE 200 MG PO ×2 (09:53→17:44)
[2022-04-05] MEDS: allopurinoL 100 MG TABLET PO (09:53)
[2022-04-05] MEDS: MIDODRINE HCL 10 MG TABLET PO (09:53)
[2022-04-05] MEDS: TOLNAFTATE 1% POWDER 45 GM BTL 1 APPLIC TOPICAL ×2 (09:54→20:20)
--- NOTE | 2022-04-05 10:03 | PCPTNOTE ---
Attempted PT evaluation, pt refused stating she does not feel good. RN in room/aware. Will follow
--- NOTE | 2022-04-05 12:48 | P.PNNP_ITS ---
Progress Note: A&P Assessment and Plan (1) End stage renal disease: Code(s): N18.6 - End stage renal disease Status: Chronic Assessment and Plan: * HD tomorrow and continue T/T/S schedule * follow electrolytes, volume status, and clearance (2) Acute respiratory failure with hypoxia: Code(s): J96.01 - Acute respiratory failure with hypoxia Status: Acute Assessment and Plan: * due to pulmonary edema/volume overload + pneumonia * reasonable oxygenation with supplemental oxygen * continue to push fluid removal as tolerated by hemodynamics * on antibiotics * continue current therapy (3) Acute congestive heart failure: Qualifiers: Heart failure type: diastolic Qualified Code(s): I50.31 - Acute diastolic (congestive) heart failure Code(s): I50.9 - Heart failure, unspecified Status: Acute Assessment and Plan: * as evidenced by admission CXR + CT imaging * suspect partly related to limited fluid removal with HD due to her relative hypotension * Echo results noted * continue fluid removal/ultrafiltration with HD/DUF as tolerated (4) Pneumonia: Code(s): J18.9 - Pneumonia, unspecified organism Status: Acute Assessment and Plan: * as suggestd by admission imaging * follow culture data * on antibiotics (5) Anemia: Code(s): D64.9 - Anemia, unspecified Status: Chronic Assessment and Plan: * related to ESRD * Epogen with HD * follow trend of H/H (6) Neck pain on right side: Code(s): M54.2 - Cervicalgia Status: Acute Assessment and Plan: * CT imaging reviewed * some improvement with current therapy Will continue to follow. Subjective Date/time seen: 04/05/22 12:48 Tolerated dialysis treatment yesterday without any issues or problems although fluid removal with HD somewhat limited due to relative hypotension; still wearing supplemental oxygen at the time of my visit but does not appear in respiratory distress; no apparent distress. Exam Narrative: General: elderly WD/WN female in NAD Heart: normal S1 and S2; no rub Lungs: decreased at the bases with some bibasilar crackles Abdomen: soft, nontender, nondistended, positive bowel sounds Extremities: no cyanosis or clubbing; trace edema Skin: warm and dry Objective Data Vital Signs Vital Signs: Vital Signs Temp Pulse Resp BP Pulse Ox O2 Del Method O2 Flow Rate 04/05/22 09:50 96 Nasal Cannula 4 04/05/22 08:17 96 Nasal Cannula 4 04/05/22 06:00 98.3 F 79 21 H 126/58 L 93 04/04/22 22:09 92 Nasal Cannula 4 04/04/22 22:00 97.9 F 76 23 H 130/60 96 Intake/Output Intake/Output: Intake & Output 04/02/22 04/03/22 04/04/22 04/05/22 23:59 23:59 23:59 23:59 Intake Total 2090 1590 1118 Output Total 1999 700 Balance 90 890 1118 Meds/Results Medications: Active Medications Generic Name Dose Route Start Last Admin Trade Name Freq PRN Reason Stop Dose Admin Acetaminophen 1,000 mg 04/03/22 01:14 04/04/22 05:45 Acetaminophen 500 Mg Tablet PO 1,000 mg Q6H PRN Administration Mild Pain (1-3) or Fever Allopurinol
--- NOTE | 2022-04-05 12:48 | PM.PNNEP ---
Progress Note: A&P Assessment and Plan (1) End stage renal disease: Code(s): N18.6 - End stage renal disease Status: Chronic Assessment and Plan: HD tomorrow and continue T/T/S schedule follow electrolytes, volume status, and clearance (2) Acute respiratory failure with hypoxia: Code(s): J96.01 - Acute respiratory failure with hypoxia Status: Acute Assessment and Plan: due to pulmonary edema/volume overload + pneumonia reasonable oxygenation with supplemental oxygen continue to push fluid removal as tolerated by hemodynamics on antibiotics continue current therapy (3) Acute congestive heart failure: Qualifiers: Heart failure type: diastolic Qualified Code(s): I50.31 - Acute diastolic (congestive) heart failure Code(s): I50.9 - Heart failure, unspecified Status: Acute Assessment and Plan: as evidenced by admission CXR + CT imaging suspect partly related to limited fluid removal with HD due to her relative hypotension Echo results noted continue fluid removal/ultrafiltration with HD/DUF as tolerated (4) Pneumonia: Code(s): J18.9 - Pneumonia, unspecified organism Status: Acute Assessment and Plan: as suggestd by admission imaging follow culture data on antibiotics (5) Anemia: Code(s): D64.9 - Anemia, unspecified Status: Chronic Assessment and Plan: related to ESRD Epogen with HD follow trend of H/H (6) Neck pain on right side: Code(s): M54.2 - Cervicalgia Status: Acute Assessment and Plan: CT imaging reviewed some improvement with current therapy Will continue to follow. Subjective Date/time seen: 04/05/22 12:48 Tolerated dialysis treatment yesterday without any issues or problems although fluid removal with HD somewhat limited due to relative hypotension; still wearing supplemental oxygen at the time of my visit but does not appear in respiratory distress; no apparent distress. Exam Narrative: General: elderly WD/WN female in NAD Heart: normal S1 and S2; no rub Lungs: decreased at the bases with some bibasilar crackles Abdomen: soft, nontender, nondistended, positive bowel sounds Extremities: no cyanosis or clubbing; trace edema Skin: warm and dry Objective Data Vital Signs Vital Signs: Vital Signs Temp Pulse Resp BP Pulse Ox O2 Del Method O2 Flow Rate 04/05/22 09:50 96 Nasal Cannula 4 04/05/22 08:17 96 Nasal Cannula 4 04/05/22 06:00 98.3 F 79 21 H 126/58 L 93 04/04/22 22:09 92 Nasal Cannula 4 04/04/22 22:00 97.9 F 76 23 H 130/60 96 Intake/Output Intake/Output: Intake & Output 04/02/22 04/03/22 04/04/22 04/05/22 23:59 23:59 23:59 23:59 Intake Total 2090 1590 1118 Output Total 2000 700 Balance 90 890 1118 Meds/Results Medications: Active Medications Generic Name Dose Route Start Last Admin Trade Name Freq PRN Reason Stop Dose Admin Acetaminophen 1,000 mg 04/03/22 01:14 04/04/22 05:45 Acetaminophen 500 Mg Tablet PO 1,000 mg Q6H PRN Administration Mild Pain (1-3) or Fever Allopurinol 100 mg 04/03/22 08:00 04/05/22 09:53 Allopurinol 100 Mg Tablet PO 100 mg DAILY@0800 ERIC Administration Amoxicillin/Clavulanate Potassium 1 tablet 04/05/22 21:00 Amoxicillin/Clavulanate K 500-125 Mg Tab PO HS ERIC Aspirin 81 mg 04/03/22 09:00 04/05/22 09:53 Aspirin 81 Mg Enteric Tablet PO 81 mg DAILY ERIC Administration Atorvastatin Calcium 40 mg 04/03/22 21:00 04/04/22 20:59 Atorvastatin 40 Mg Tablet PO 40 mg HS ERIC Administration Fluticasone Propionate 2 spray 04/05/22 13:00 04/05/22 17:44 Fluticasone Propionate 0.05% Na Spr 16 Gm Btl (*Bkc) NASAL 2 spray QAM ERIC Administration Gabapentin 200 mg 04/03/22 09:00 04/05/22 17:44 Gabapentin 100 Mg Capsule PO 200 mg BID ERIC Administration Heparin Sodium (Porc
[2022-04-05 14:00] VITALS: BP 115/41; PULSE 63; RESP 21; TEMP 36.4; O2SAT 98
--- NOTE | 2022-04-05 14:13 | PCOTNOTE ---
Attempted OT evaluation, pt refused stating she does not feel good and is resting. RN in room/aware. Will follow
--- NOTE | 2022-04-05 16:09 | PM.IMPN ---
Progress Note: A&P Assessment and Plan (1) Infiltrate of lower lobe of right lung present on imaging study: Code(s): R91.8 - Other nonspecific abnormal finding of lung field Status: Acute Assessment and Plan: Possible pneumonia. Chest X-ray with bilateral opacities. WBC within normal limits. Treated with empiric cefepime IV, azithromycin IV and vanc with HD 04/03 to 04/05. Transition to oral augmentin renally dosed once daily x 5 more days. Repeat CXR 04/05 shows stable pulmonary edema pattern. blood cultures negative to date Continue to monitor (2) End-stage renal disease on hemodialysis: Code(s): N18.6 - End stage renal disease; Z99.2 - Dependence on renal dialysis Status: Acute Assessment and Plan: HD on Tuesdays and Saturdays Nephrology consult and appreciate recommendations 04/03/22 HD today - 2L 04/04/22 HD today -700 mL HD in am (3) Anemia of chronic disease: Code(s): D63.8 - Anemia in other chronic diseases classified elsewhere Status: Acute Assessment and Plan: Presumed secondary to ESRD. Hgb 9.3 No acute s/s bleeding Monitor. Epogen deferred to nephrology service Stable. (4) Morbid obesity with BMI of 45.0-49.9, adult: Code(s): E66.01 - Morbid (severe) obesity due to excess calories; Z68.42 - Body mass index [BMI] 45.0-49.9, adult Status: Chronic Assessment and Plan: Lifestyle and diet modifications BMI 53 (5) Acute respiratory failure with hypoxia: Code(s): J96.01 - Acute respiratory failure with hypoxia Status: Acute Assessment and Plan: Currently on supplemental oxygen by nasal cannula. Secondary to CHF exacerbation and pneumonia Wean O2 as needed- currently on 4L NC with spo2 92% Echo shows pulmonary hypertension RSVP 76 Stable. on home oxygen. CXR as above. (6) Acute congestive heart failure: Qualifiers: Heart failure type: diastolic Qualified Code(s): I50.31 - Acute diastolic (congestive) heart failure Code(s): I50.9 - Heart failure, unspecified Status: Acute Assessment and Plan: BNP 22,000 on admission. Chest x-ray with pulmonary opacities, which may suggest pulmonary edema. echocardiogram shows grade 1 diastolic dysfunction and pulmonary hypertension with RVSP 76 mmhg Continue dialysis, daily weights and I/O monitoring CXR 04/05 shows stable pulmonary edema. Continue dialysis and medications. (7) Neck pain on right side: Code(s): M54.2 - Cervicalgia Status: Acute Assessment and Plan: Suspect torticollis. CT neck negative for acute abnormality Continue methocarbamol and Tylenol lidoderm patch 5% daily Improving Plan Possible discharge tomorrow after HD if stable. Time Spent With Patient Time with patient: 15 - 25 minutes Subjective Date/time seen: 04/05/22 16:09 Her neck is improved with patch and oral medications. She denies breathing difficulties today. She is concerned that her AV fistula may be infected. She reports it was recently surgically repaired at [facility]. Review of Systems Review of Systems: All systems reviewed & are unremarkable except as noted in HPI and below Exam Narrative: GENERAL: no acute distress, Lying in bed. HEENT: Normocephalic. Pupils equal and round. moist mucous membranes NECK: no lymphadenopathy or JVD. Right sternocleidomastoid tenderness to palpation and improving muscle tension compared to left side. RESPIRATORY: Respirations unlabored. lung sounds clear to auscultation bilateral upper lobes, rhonchi and fine rales bibasilar lobes. No wheezing CARDIO: Normal S1 and S2 regular rate and rhythm. systolic murmur 1/6 LSB, no gallops or rubs. GI: soft, obese, nontender, bowel sounds present SKIN: no rashes, fair, warm & dry. LUE AV fistula with sutures open to air, purple ecchymosis distally. No erythema, increased warmth, tenderness to palpation or discharge noted. +thrill
[2022-04-05] MEDS: FLUTICASONE PROPIONATE 0.05% NA SPR 16 GM BTL (*BKC) 2 SPRAY NASAL (17:44)
[2022-04-05 20:00] VITALS: PULSE 63; RESP 21; O2SAT 98
[2022-04-05] MEDS: ATORVASTATIN 40 MG TABLET PO (20:19)
[2022-04-05] MEDS: AMOXICILLIN/CLAVULANATE K 500-125 MG TAB 1 TABLET PO (20:19)
[2022-04-05 22:00] VITALS: BP 111/51; PULSE 67; RESP 19; TEMP 36.6; O2SAT 99
[2022-04-06] VITALS (19 sets, daily range): BP systolic 64–168; BP diastolic 32–89; PULSE 61–81; RESP 18–22; TEMP 36–36.8; O2SAT 96
[2022-04-06] MEDS: SALINE 0.65% NAS SOLN 44 ML BTL 1 SPRAY NASAL (03:15)
[2022-04-06 03:17] LABS: Glucose Point of Care 159 mg/dl (65-105)
--- NOTE | 2022-04-06 03:18 | PC.NURSE ---
c/o sob pulled up in bed x2 assist, vs stable, NS nasal spray given, helpful 96% 4 l nc
[2022-04-06 07:17] LABS: Basophils Percent Auto 0.6 % (0.2-1.2); Eosinophils Absolute Auto 0.4 K/mm3 (0-0.3); Eosinophils Percent Auto 7.6 % (0-4.4); Hemoglobin 8.6 g/dL (12.0-15.0); Immature Granulocyte Absolute 0.04 K/mm3 (0.00-0.031); Immature Granulocyte Percent A 0.8 % (0-0.5); Lymphocytes Absolute Auto 1.06 K/mm3 (0.9-3.2); Lymphocytes Percent Auto 21.9 % (18.3-44.2); Mean Corpuscular HGB Conc 29.7 g/dl (32-36); Mean Corpuscular Hemoglobin 35.7 pg (26-34); Mean Corpuscular Volume 120.3 fl (80-100); Mean Platelet Volume 10.7 fl (7.4-10.4); Monocytes Absolute Auto 0.6 K/mm3 (0.1-0.6); Monocytes Percent Auto 12.6 % (2.6-8.5); Neutrophils Absolute Auto 2.7 K/mm3 (1.3-6.7); Neutrophils Percent Auto 56.5 % (45.5-73.1); Nucleated Red Blood Cells Perc 0.6 % (0.0-0.2); Platelet Count Result 145 k/mm3 (150-375); Red Blood Count 2.41 M/mm3 (4.2-5.4); Red Cell Distribution Width 14.2 % (11.5-14.5); White Blood Count 4.8 K/mm3 (4.5-10.0)
[2022-04-06 07:34] LABS: Anion Gap 10 mmol/L (8-16); Blood Urea Nitrogen 45 mg/dL (7-17); Calcium 7.4 mg/dL (8.4-10.2); Carbon Dioxide 30 mmol/L (22-30); Chloride 99 mmol/L (98-107); Estimated CRCL calculation 7 ml/min; Estimated Glomerular Filt Rate 5; Glucose 136 mg/dL (65-110); Potassium 5.6 mmol/L (3.4-5.0); Sodium 139 mmol/L (137-145)
[2022-04-06] MEDS: VITAMIN B CMPLX/VIT C/FOLIC AC 1 CAPSULE 1 CAP PO (08:15)
[2022-04-06] MEDS: HEPARIN SODIUM 5,000 UNITS/ML VIAL 5000 UNITS SUB-Q (08:15)
[2022-04-06] MEDS: LIDOCAINE 5% PATCH 1 PATCH TRANSDERM (08:15)
[2022-04-06 08:16] LABS: Glucose Point of Care 157 mg/dl (65-105)
[2022-04-06] MEDS: ASPIRIN 81 MG ENTERIC TABLET PO (08:16)
[2022-04-06] MEDS: allopurinoL 100 MG TABLET PO (08:16)
[2022-04-06] MEDS: FLUTICASONE PROPIONATE 0.05% NA SPR 16 GM BTL (*BKC) 2 SPRAY NASAL (08:16)
[2022-04-06] MEDS: TOLNAFTATE 1% POWDER 45 GM BTL 1 APPLIC TOPICAL (08:16)
[2022-04-06] MEDS: GABAPENTIN 100 MG CAPSULE 200 MG PO (08:16)
[2022-04-06] MEDS: MIDODRINE HCL 10 MG TABLET PO (08:16)
[2022-04-06] MEDS: SODIUM CHLORIDE 0.9% IV 1,000 ML 999 ML IV CONT ×2 (09:52→09:54)
[2022-04-06] MEDS: EPOETIN ALFA-EPBX 10,000 UNITS/ML VIAL 10000 UNITS IV PUSH ×2 (09:53→09:56)
[2022-04-06] MEDS: ALBUMIN HUMAN 25% 12.5 GM/50ML 50 ML 999 GM ×2 (09:55→09:56)
[2022-04-06] MEDS: ALBUMIN HUMAN 25% 12.5 GM/50ML 50 ML IVPB (10:45)
--- NOTE | 2022-04-06 13:08 | PM.PNNEP ---
Progress Note: A&P Assessment and Plan (1) End stage renal disease: Code(s): N18.6 - End stage renal disease Status: Chronic Assessment and Plan: HD today and continue T/T/S schedule follow electrolytes, volume status, and clearance (2) Acute respiratory failure with hypoxia: Code(s): J96.01 - Acute respiratory failure with hypoxia Status: Acute Assessment and Plan: due to pulmonary edema/volume overload + pneumonia reasonable oxygenation with supplemental oxygen continue to push fluid removal as tolerated by hemodynamics on antibiotics continue current therapy (3) Acute congestive heart failure: Qualifiers: Heart failure type: diastolic Qualified Code(s): I50.31 - Acute diastolic (congestive) heart failure Code(s): I50.9 - Heart failure, unspecified Status: Acute Assessment and Plan: as evidenced by admission CXR + CT imaging suspect partly related to limited fluid removal with HD due to her relative hypotension Echo results noted continue fluid removal/ultrafiltration with HD/DUF as tolerated (4) Pneumonia: Code(s): J18.9 - Pneumonia, unspecified organism Status: Acute Assessment and Plan: as suggestd by admission imaging follow culture data on antibiotics (5) Anemia: Code(s): D64.9 - Anemia, unspecified Status: Chronic Assessment and Plan: related to ESRD Epogen with HD follow trend of H/H (6) Neck pain on right side: Code(s): M54.2 - Cervicalgia Status: Acute Assessment and Plan: CT imaging reviewed some improvement with current therapy Will continue to follow. Subjective Date/time seen: 04/06/22 13:08 Tolerating dialysis treatment at the time of my visit (seen on HD at 12:55PM); she seems to be tolerating more fluid removal at this time although her BP still drops at times during dialysis session; no other acute issues or problems toreport. Exam Narrative: General: elderly WD/WN female in NAD Heart: normal S1 and S2; no rub Lungs: decreased at the bases with some bibasilar crackles Abdomen: soft, nontender, nondistended, positive bowel sounds Extremities: no cyanosis or clubbing; trace edema Skin: warm and intact Objective Data Vital Signs Vital Signs: Vital Signs Temp Pulse Resp BP Pulse Ox O2 Del Method O2 Flow Rate 04/06/22 11:30 66 113/42 L 04/06/22 11:00 66 113/32 L 04/06/22 10:40 68 103/40 L 04/06/22 10:20 67 125/45 L 04/06/22 10:00 66 148/46 H 04/06/22 09:40 65 168/89 H 04/06/22 09:23 68 138/45 L 04/06/22 09:23 4 04/06/22 09:18 98.2 F 74 18 120/56 L 04/06/22 06:00 97.6 F 68 19 115/58 L 96 04/06/22 03:16 65 22 H 96 Nasal Cannula 4 04/06/22 03:12 97.4 F L 65 22 H 108/64 96 04/05/22 22:00 97.9 F 67 19 111/51 L 99 04/05/22 20:00 63 21 H 98 Nasal Cannula 4 04/05/22 15:25 Nasal Cannula 4 04/05/22 14:00 97.6 F 63 21 H 115/41 L 98 Intake/Output Intake/Output: Intake & Output 04/03/22 04/04/22 04/05/22 04/06/22 23:59 23:59 23:59 23:59 Intake Total 2089 1590 1957 Output Total 1999 700 Balance 90 890 1957 Meds/Results Medications: Active Medications Generic Name Dose Route Start Last Admin Trade Name Abigail PRN Reason Stop Dose Admin Acetaminophen 1,000 mg 04/03/22 01:14 04/04/22 05:45 Acetaminophen 500 Mg Tablet PO 1,000 mg Q6H PRN Administration Mild Pain (1-3) or Fever Allopurinol 100 mg 04/03/22 08:00 04/06/22 08:16 Allopurinol 100 Mg Tablet PO 100 mg DAILY@0800 ERIC Administration Amoxicillin/Clavulanate Potassium 1 tablet 04/05/22 21:00 04/05/22 20:19 Amoxicillin/Clavulanate K 500-125 Mg Tab PO 1 tablet HS ERIC Administration Aspirin 81 mg 04/03/22 09:00 04/06/22 08:16 Aspirin 81 Mg Enteric Tablet PO 81 mg DAILY ERIC Administr
--- NOTE | 2022-04-06 15:54 | PM.DS ---
DS: Admitting Diagnosis Discharge Date 04/06/2022 1554 Admitting Diagnosis Pneumonia End-stage renal disease on hemodialysis Anemia of chronic disease Morbid obesity with BMI of 45.0-49.9, adult Acute respiratory failure with hypoxia Acute congestive heart failure Cervicalgia DS: Discharge Diagnosis Discharge Diagnosis (1) Acute respiratory failure with hypoxia: Code(s): J96.01 - Acute respiratory failure with hypoxia Status: Acute Assessment and Plan: Acute on chronic disease. Increased O2 needs from baseline 3-4L by nasal cannula. Secondary to CHF exacerbation and pneumonia Wean O2 as needed Echo shows pulmonary hypertension RSVP 76 Stable. (2) Pneumonia: Qualifiers: Pneumonia type: due to unspecified organism Laterality: bilateral Lung location: unspecified part of lung Qualified Code(s): J18.9 - Pneumonia, unspecified organism Code(s): J18.9 - Pneumonia, unspecified organism Status: Acute Assessment and Plan: Possible pneumonia. Chest X-ray with bilateral opacities edema versus pneumonia. WBC within normal limits.? Treated with empiric cefepime IV, azithromycin IV and vanc with HD 04/03 to 04/05. 04/05/22 Transition to oral augmentin renally dosed once daily x 5 more days.? Repeat CXR 04/05 showed stable pulmonary edema pattern.? blood cultures negative ? Afebrile (3) Acute congestive heart failure: Qualifiers: Heart failure type: diastolic Qualified Code(s): I50.31 - Acute diastolic (congestive) heart failure Code(s): I50.9 - Heart failure, unspecified Status: Inactive Assessment and Plan: Acute on chronic diastolic CHF BNP 22,000 on admission. Chest x-ray with pulmonary opacities, which may suggest pulmonary edema. echocardiogram shows grade 1 diastolic dysfunction and pulmonary hypertension with RVSP 76 mmhg Continued dialysis, daily weights and I/O monitoring Respiratory symptoms improved and returned to baseline oxygen CXR 04/05 shows stable pulmonary edema. Continued dialysis. (4) Neck pain on right side: Code(s): M54.2 - Cervicalgia Status: Acute Assessment and Plan: Suspect torticollis. CT neck negative for acute abnormality. H/O cancer. treated with Tylenol PRN and lidoderm patch 5% daily Improved (5) End-stage renal disease on hemodialysis: Code(s): N18.6 - End stage renal disease; Z99.2 - Dependence on renal dialysis Status: Acute Assessment and Plan: HD on Tuesdays and Saturdays Nephrology consult and appreciate recommendations 04/03/22 HD today - 2L 04/04/22 HD today -700 mL Stable. (6) Anemia of chronic disease: Code(s): D63.8 - Anemia in other chronic diseases classified elsewhere Status: Acute Assessment and Plan: Presumed secondary to ESRD. Hgb 9.3 No acute s/s bleeding Monitor. Epogen deferred to nephrology service Stable. (7) Morbid obesity with BMI of 45.0-49.9, adult: Code(s): E66.01 - Morbid (severe) obesity due to excess calories; Z68.42 - Body mass index [BMI] 45.0-49.9, adult Status: Inactive Assessment and Plan: Lifestyle and diet modifications BMI 53 (8) Pulmonary hypertension: Code(s): I27.20 - Pulmonary hypertension, unspecified Status: Chronic Assessment and Plan: Noted on echocardiogram. Likely secondary to obesity related hypoventilation syndrome On chronic supplemental oxygen. DS: Summary Hospital Course Reason for hospitalization: Neck pain Hospital Course: Norma Ferguson is a 76-year-old female with end-stage renal disease on hemodialysis Tuesdays, , and Saturdays, remote history of lymphoma 15 years ago, diabetes, hypertension and anemia of chronic disease.? She was undergoing dialysis treatment when she developed right-sided neck pain. She also complained of sore throat and a runny nose for 3 days. She denied pain or difficulty swallowing
== END 2022-04-06 16:20 | disposition home or self-care (01) | DRG 291 ==
LOC: ANHED 16:48 → ANH3MEDSUR 17:37
PROVIDERS: Internal Medicine; Internal Medicine Nephrology; Admitting Provider Student in an Organized Health Care Education/Training Program; Emergency Provider Emergency Medicine; Visit Provider Nurse Practitioner Family
DX: I50.31 Acute diastolic (congestive) heart failure (principal); J18.9 Pneumonia, unspecified organism; N18.6 End stage renal disease; J96.01 Acute respiratory failure with hypoxia; Z68.43 Body mass index [BMI] 50.0-59.9, adult; D63.1 Anemia in chronic kidney disease; E66.01 Morbid (severe) obesity due to excess calories; I27.20 Pulmonary hypertension, unspecified; I95.9 Hypotension, unspecified; M43.6 Torticollis; Z99.2 Dependence on renal dialysis; Z20.822 Contact with and (suspected) exposure to COVID-19; Z79.82 Long term (current) use of aspirin; Z79.899 Other long term (current) drug therapy
CPT/HCPCS: 36415; 70490; 71045; 71046; 71250; 80048; 80053; 80202; 82948; 83735; 83880; 84100; 84484; 85025; 85055; 86706; 87040; 87340; 87636; 93005; 96365; 96366; 96367; 96375; 97161; 97165; 99285; A9270; C8929; G0257; G0378; J0456; J0692; J1170; J1644; J3370; J7030; P9047; Q5105; Q9957